=== PATIENT | female | born 1965 | race Caucasian/White ===

== ENCOUNTER 2019-10-10 15:28 | Emergency (ER) | payer OTHER, SELFPAY ==
[2019-10-10 15:30] VITALS: BP 139/81; PULSE 105; RESP 18; TEMP 36.2; O2SAT 99; BMI 30.4
[2019-10-10] MEDS: ONDANSETRON 4 MG/2 ML INJ IV (16:02)
[2019-10-10] MEDS: SODIUM CHLORIDE 0.9% 1,000 ML 1000 ML IV (16:02)
[2019-10-10] MEDS: KETOROLAC 60 MG/2 ML VIAL 30 MG IV (16:13)
[2019-10-10 16:15] LABS: Prothrombin Time 11.4 SECONDS (10.1-12.7)
[2019-10-10 16:18] LABS: PTT Partial Thromboplastin Tim 29 SECONDS (26.4-36.2)
[2019-10-10 16:19] LABS: Alanine Aminotransferase 51 IU/L (<35); Albumin 5.1 g/dL (3.5-5.0); Albumin Globulin Ratio 1.5 (1.0-2.8); Alkaline Phosphatase 109 U/L (38-126); Aspartate Aminotransferase 52 IU/L (14-36); BUN Creatinine Ratio 22.2 (6-22); Bilirubin Total 1.1 mg/dL (0.2-1.3); Blood Urea Nitrogen 20 mg/dL (7-17); Calcium 9.6 mg/dL (8.4-10.2); Carbon Dioxide 27 mmol/L (22-32); Chloride 103 mmol/L (98-107); Estimated Glomerular Filt Rate > 60.0 mL/min (>60); Globulin 3.4 g/dL (1.7-4.1); Glucose 145 mg/dL (70-100); HEMOLYSIS 46 (0-50); Lipase 80 U/L (23-300); Potassium 4.1 mmol/L (3.4-5.1); Sodium 141 mmol/L (137-145); Total Protein 8.5 g/dL (6.3-8.2)
--- NOTE | 2019-10-10 16:23 | ED.NAVMDI ---
HPI - Nausea/Vomiting/Diarrhea General Chief complaint: Nausea/Vomiting/Diarrhea Stated complaint: flu like Sx, N/V/D Time Seen by Provider: 10/10/19 16:10 Source: patient Mode of arrival: Ambulatory History of Present Illness HPI Narrative: Patient is a 54 year old male who presents with vomiting diarrhea ongoing since 4:00 a.m. this morning. No else is sick. He says he is having diarrhea of same time as vomiting. Nonbloody he has had numerous episodes of vomiting. His abdomen feels crampy. He has whole body aches. He denies any throat pain or shortness of breath. MD complaint: nausea, vomiting, diarrhea and abdominal pain Onset (ago): hour(s) Description of Vomiting: watery Description of Diarrhea: none Location of pain: diffuse Severity: moderate Quality: cramping Related Data Previous Rx's Medication Instructions Recorded metoclopramide HCl [Reglan] 10 mg PO Q6H PRN #10 tab 10/10/19 ondansetron 4 mg PO Q8H PRN #10 tab 10/10/19 vancomycin 125 mg PO QID 10 Days #40 cap 10/10/19 Allergies Allergy/AdvReac Type Severity Reaction Status Date / Time sulfamethoxazole Allergy Severe Rash Verified 10/10/19 15:34 [From Bactrim] trimethoprim [From Bactrim] Allergy Severe Rash Verified 10/10/19 15:34 Review of Systems Review of Systems Narrative: GENERAL: Denies chills, fatigue, malaise, fever, sweats, travel HEENT: Denies sinus pain, ear pain, sore throat, difficulty swallowing, neck pain RESPIRATORY: Denies dyspnea, cough, wheezing, hemoptysis, sputum. CARDIOVASCULAR: Denies chest pain, palpitations, orthopnea, edema GASTROINTESTINAL: See HPI : Denies dysuria, frequency, incontinence, hematuria, urinary retention, flank pain. MUSCULOSKELETAL: Denies weakness, joint pain, or bony pain SKIN: No rash, no erythema, no pruritus NEUROLOGIC: Denies weakness, dizziness, headache, numbness, change in speech, confusion PSYCHIATRIC: No concerning psychosocial issues. 12 point review of systems is negative except for those stated above and HPI Patient History Medical History Hyperlipidemia (Acute) Hypertension (Acute) Social History Smoking Status: Never smoker Smoking Status: Never smoker alcohol intake frequency: a few times a month Substance Use Type: does not use Exam Initial Vital Signs Initial Vital Signs: Vital Signs Temperature 97.1 F L 10/10/19 15:30 Pulse Rate 105 H 10/10/19 15:30 Respiratory Rate 18 10/10/19 15:30 Blood Pressure 139/81 10/10/19 15:30 Pulse Oximetry 99 10/10/19 15:30 GENERAL: Well-appearing, well-nourished and in no acute distress. HEENT: Head atraumatic,EOMI, pupils reactive, face symmetric, moist mucous membranes CARDIOVASCULAR: Regular rate and rhythm without murmurs, rubs or gallops. RESPIRATORY: Breath sounds equal bilaterally, no wheezes rales or rhonchi. ABDOMEN: Soft, diffusely tender no guarding no rebound EXTREMITIES: Normal range of motion, no clubbing or edema. Neurovascularly intact NEUROLOGICAL: Alert and oriented x4.Normal gait and speech. Cranial nerves II through XII grossly intact. SKIN: Warm, dry, no laceration, no petechiae, no rashes or lesions. Course Orders Ordered: Discontinued Medications Sodium Chloride (Normal Saline 0.9%) 1,000 mls @ 1,000 mls/hr IV BOLUS ONE Stop: 10/10/19 16:48 Last Infusion: 10/10/19 17:00 Dose: 0 mls/hr Documented by: Admin: 10/10/19 16:02 Dose: 1,000 mls/hr Documented by: BILL Ketorolac Tromethamine (Toradol) 30 mg IV NOW ONE Stop: 10/10/19 16:11 Last Admin: 10/10/19 16:13 Dose: 30 mg Documented by: BILL Metronidazole (Metronidazole) 500 mg PO NOW ONE Stop: 10/10/19 18:23 Last Admin: 10/10/19 18:47 Dose: Not Given Documented by: GRICELDA Ondansetron HCl (Zofran) 4 mg IV NOW ONE Stop: 10/10/19 15:52 Last Admin: 10/10/19 16:02 Dose: 4 mg Documented by: BILL Pantoprazole Sodium (Protonix) 40 mg IV NOW ONE Stop: 10/10/19 16:24 Last Admin: 10/10/19 16:40 Dose: 40 mg Documented by: BILL Vancomycin HCl (Vancomycin) 125 mg PO NOW ONE Stop: 10/10/19 18:50 Last Admin: 10/10/19 19:04 Dose: 125 mg Documented by: BILL Vital Signs Vital signs: Vital Signs - 8 hr 10/10/19 15:30 Temperature 97.1 F L Pulse Rate 105 H Respiratory Rate 18 Blood Pressure 139/81 Pulse Oximetry 99 MDM - Nausea/Vomiting/Diarrhea Lab Data Attestation: I reviewed the patient's lab results. Result diagrams: 10/10/19 15:56 10/10/19 15:56 Labs: Lab Results 10/10/19 10/10/19 10/10/19 Range/Units 15:46 15:56 15:56 WBC 12.5 H (4.5-11.0) X10^3/uL RBC 5.18 (4.0-5.2) X10^6/uL Hgb 16.3 H (12.0-16.0) g/dL Hct 47.7 H (36-46) % MCV 92.2 (80-100) fL MCH 31.4 (26-34) PG MCHC 34.1 (30-36) % RDW 13.2 (11.6-14.8) % Plt Count 224 (150-400) X10^3/uL Neut % (Auto) 94.8 H (50-75) % Lymph % (Auto) 2.1 L (25-40) % Mcintosh % (Auto) 2.7 L (3-14) % Eos % (Auto) 0.1 L (2-4) % Baso % (Auto) 0.3 (0-2) % Neut # (Auto) 81752 H (6287-2390) /uL Lymph # (Auto) 300 L (8465-4301) /uL Mcintosh # (Auto) 300 (0-900) /uL Eos # (Auto) 0 (0-450) /uL Baso # (Auto) 0 (0-100) /uL PT 11.4 (10.1-12.7) SECONDS INR 1.0 (0.9-1.3) APTT 29 (26.4-36.2) SECONDS Sodium (137-145) mmol/L Potassium (3.4-5.1) mmol/L Chloride (98-107) mmol/L Carbon Dioxide (22-32) mmol/L BUN (7-17) mg/dL Creatinine (0.52-1.04) mg/dL Estimated GFR (>60) mL/min BUN/Creatinine Ratio (6-22) Glucose (70-100) mg/dL Calcium (8.4-10.2) mg/dL Total Bilirubin (0.2-1.3) mg/dL AST (14-36) IU/L ALT (<35) IU/L Alkaline Phosphatase (38-126) U/L Total Protein (6.3-8.2) g/dL Albumin (3.5-5.0) g/dL Globulin (1.7-4.1) g/dL Albumin/Globulin Ratio (1.0-2.8) Lipase (23-300) U/L Stl C. cayetanensis PCR (Not Detect) Stool Rotavirus (PCR) (Not Detect) Stool Adenovirus (PCR) (Not Detect) Stool Astrovirus (PCR) (Not Detect) Stool Cryptosporidium PCR (Not Detect) Stl E.coli Shiga Tox PCR (Not Detect) St Sh/Enteroin Ecoli PCR (Not Detect) Stool E coli O157 PCR (Not Detect) Stl Enterotoxigenic E PCR (Not Detect) Stool EPEC (PCR) (Not Detect) Stl E. histolytica PCR (Not Detect) Stool Giardia Lamblia PCR (Not Detect) Stool Sapovirus (PCR) (Not Detect) Stl P. shigelloides PCR (Not Detect) St Y.enterocolitica PCR (Not Detect) Stool Vibrio (PCR) (Not Detect) Stl Vibrio cholerae PCR (Not Detect) Stl Enteroaggr Ecoli PCR (Not Detect) Stl Norovirus GI/GII PCR (Not Detect) Campylobacter (PCR) (Not Detect) C. difficile Tox (PCR) (Not Detect) Influenza A (RT-PCR) Flu a negative (NEGATIVE) Influenza B (RT-PCR) Flu b negative (NEGATIVE) Salmonella (PCR) (Not Detect) 10/10/19 10/10/19 Range/Units 15:56 16:45 WBC (4.5-11.0) X10^3/uL RBC (4.0-5.2) X10^6/uL Hgb (12.0-16.0) g/dL Hct (36-46) % MCV (80-100) fL MCH (26-34) PG MCHC (30-36) % RDW (11.6-14.8) % Plt Count (150-400) X10^3/uL Neut % (Auto) (50-75) % Lymph % (Auto) (25-40) % Mcintosh % (Auto) (3-14) % Eos % (Auto) (2-4) % Baso % (Auto) (0-2) % Neut # (Auto) (8175-2253) /uL Lymph # (Auto) (2167-9083) /uL Mcintosh # (Auto) (0-900) /uL Eos # (Auto) (0-450) /uL Baso # (Auto) (0-100) /uL PT (10.1-12.7) SECONDS INR (0.9-1.3) APTT (26.4-36.2) SECONDS Sodium 141 (137-145) mmol/L Potassium 4.1 (3.4-5.1) mmol/L Chloride 103 (98-107) mmol/L Carbon Dioxide 27 (22-32) mmol/L BUN 20 H (7-17) mg/dL Creatinine 0.90 (0.52-1.04) mg/dL Estimated GFR > 60.0 (>60) mL/min BUN/Creatinine Ratio 22.2 H (6-22) Glucose 145 H (70-100) mg/dL Calcium 9.6 (8.4-10.2) mg/dL Total Bilirubin 1.1 (0.2-1.3) mg/dL AST 52 H (14-36) IU/L ALT 51 H (<35) IU/L Alkaline Phosphatase 109 (38-126) U/L Total Protein 8.5 H (6.3-8.2) g/dL Albumin 5.1 H (3.5-5.0) g/dL Globulin 3.4 (1.7-4.1) g/dL Albumin/Globulin Ratio 1.5 (1.0-2.8) Lipase 80 (23-300) U/L Stl C. cayetanensis PCR Not detected (Not Detect) Stool Rotavirus (PCR) Not detected (Not Detect) Stool Adenovirus (PCR) Not detected (Not Detect) Stool Astrovirus (PCR) Not detected (Not Detect) Stool Cryptosporidium PCR Not detected (Not Detect) Stl E.coli Shiga Tox PCR Not detected (Not Detect) St Sh/Enteroin Ecoli PCR Not detected (Not Detect) Stool E coli O157 PCR Not detected (Not Detect) Stl Enterotoxigenic E PCR Not detected (Not Detect) Stool EPEC (PCR) Not detected (Not Detect) Stl E. histolytica PCR Not detected (Not Detect) Stool Giardia Lamblia PCR Not detected (Not Detect) Stool Sapovirus (PCR) Not detected (Not Detect) Stl P. shigelloides PCR Not detected (Not Detect) St Y.enterocolitica PCR Not detected (Not Detect) Stool Vibrio (PCR) Not detected (Not Detect) Stl Vibrio cholerae PCR Not detected (Not Detect) Stl Enteroaggr Ecoli PCR Not detected (Not Detect) Stl Norovirus GI/GII PCR Detected H (Not Detect) Campylobacter (PCR) Not detected (Not Detect) C. difficile Tox (PCR) Detected H (Not Detect) Influenza A (RT-PCR) (NEGATIVE) Influenza B (RT-PCR) (NEGATIVE) Salmonella (PCR) Not detected (Not Detect) Urine Dip Bedside Urine Glucose Negative Bedside Urine Bilirubin - Negative Bedside Urine Ketone - Negative Urine Specific Broseley 1.025 Bedside Urine Occult Blood - Negative Bedside Urine pH 6.0 Bedside Urine Protein +/- 15 Bedside Urine Urobilinogen - Negative Bedside Urine Nitrite - Negative Bedside Urine Leukocytes - Negative Esterase MDM Narrative Medical decision making narrative: The patient is found to have C diff and norovirus. He is no longer vomiting he is able tolerate oral fluids. He denies any recent antibiotic use. He is started on vancomycin in the emergency department and given oral rehydration technique instructions. Discharge Plan Departure Patient Disposition: Home Clinical Impression: Norovirus, C. difficile diarrhea Discharge Date/Time: 10/10/19 19:21 Instructions: Norovirus Infection, DI for Clostridium difficile Infection Activity Restrictions/Additional Instructions: *You have been diagnosed with norovirus and C diff *What to do: Increase fluid intake recommend something like Gatorade or Gatorade like substance *Continue to take medications as directed Zofran 4 mg every 8 hours if needed for nausea or vomiting Reglan 10 mg Q 8 hours if needed for nausea vomiting Vancomycin 125 mg every 6 hours for 10 days *Follow up with your primary care provider in 2-3 days *Return to ER if you should have persistent vomiting diarrhea inability to tolerate fluids worsening pain dizziness lightheadedness passing or any new, worsening or concerning symptoms Prescriptions: New vancomycin 125 mg capsule 125 mg PO QID 10 Days Qty: 40 RF: 0 metoclopramide HCl [Reglan] 10 mg tablet 10 mg PO Q6H PRN (Reason: nausea and vomiting) Qty: 10 RF: 0 ondansetron 4 mg tablet,disintegrating 4 mg PO Q8H PRN (Reason: nausea and vomiting) Qty: 10 RF: 0 Stand Alone Forms: Work Release Note
[2019-10-10 16:24] LABS: Influenza A - CEPHEID Flu A NEGATIVE (NEGATIVE); Influenza B - CEPHEID Flu B NEGATIVE (NEGATIVE)
[2019-10-10 16:27] LABS: Add Manual Diff / Slide Review NO; Basophils Absolute Auto 0 /uL (0-100); Basophils Percent Auto 0.3 % (0-2); Eosinophils Absolute Auto 0 /uL (0-450); Eosinophils Percent Auto 0.1 % (2-4); Hematocrit 47.7 % (36-46); Hemoglobin 16.3 g/dL (12.0-16.0); Lymphocytes Absolute Auto 300 /uL (1100-4500); Lymphocytes Percent Auto 2.1 % (25-40); Mean Corpuscular HGB Conc 34.1 % (30-36); Mean Corpuscular Hemoglobin 31.4 PG (26-34); Mean Corpuscular Volume 92.2 fL (80-100); Monocytes Absolute Auto 300 /uL (0-900); Monocytes Percent Auto 2.7 % (3-14); Neutrophils Absolute Auto 11900 /uL (1500-7000); Neutrophils Percent Auto 94.8 % (50-75); Platelet Count 224 X10^3/uL (150-400); Red Blood Cell Count 5.18 X10^6/uL (4.0-5.2); Red Cell Distribution Width 13.2 % (11.6-14.8); White Blood Cell Count 12.5 X10^3/uL (4.5-11.0)
[2019-10-10] MEDS: PANTOPRAZOLE 40 MG VIAL IV (16:40)
[2019-10-10 17:30] VITALS: BP 110/73; PULSE 101; RESP 16; O2SAT 97
[2019-10-10 18:13] LABS: Adenovirus F 40/41 Not Detected (Not Detect); Astrovirus Not Detected (Not Detect); Campylobacter Not Detected (Not Detect); Clostridium difficile toxin AB Detected (Not Detect); Cryptosporidium Not Detected (Not Detect); Cyclospora cayetanensis Not Detected (Not Detect); Entamoeba histolytica Not Detected (Not Detect); Enteroaggregative E.coli Not Detected (Not Detect); Enteropathogenic E.coli Not Detected (Not Detect); Enterotoxigenic E.coli It/st Not Detected (Not Detect); Giardia lamblia Not Detected (Not Detect); Norovirus GI/GII Detected (Not Detect); Plesiomonsa shigelloides Not Detected (Not Detect); Rotavirus A Not Detected (Not Detect); Salmonella Not Detected (Not Detect); Sapovirus Not Detected (Not Detect); Shiga-like toxin-prod E.coli Not Detected (Not Detect); Shigella/Enteroinvasive E.coli Not Detected (Not Detect); Vibrio Not Detected (Not Detect); Vibrio cholerae Not Detected (Not Detect); Yersinia enterocolitica Not Detected (Not Detect)
[2019-10-10 19:02] VITALS: BP 117/73; PULSE 93; RESP 16; TEMP 36.6; O2SAT 99
[2019-10-10] MEDS: VANCOMYCIN 125 MG CAPSULE PO (19:04)
== END 2019-10-10 19:21 | disposition home or self-care (01) ==
PROVIDERS: Emergency Provider Emergency Medicine
DX: A08.11 Acute gastroenteropathy due to Norwalk agent (principal); A04.72 Enterocolitis due to Clostridium difficile, not specified as recurrent
CPT/HCPCS: 36415; 80053; 81003; 83690; 85025; 85610; 85730; 87502; 87507; 96361; 96374; 96375; 99284; C9113; J1885; J2405

== ENCOUNTER → 2021-05-11 09:24 | Outpatient (CLI) | payer OTHER, SELFPAY ==
[2021-05-11 10:02] LABS: Erythrocyte Sedimentation Rate 12 MM/HR (0-15)
== END ==
PROVIDERS: PCP Family Medicine; Referring Provider Family Medicine; Visit Provider Family Medicine
DX: R21 Rash and other nonspecific skin eruption (principal)
CPT/HCPCS: 36415; 85651

== ENCOUNTER 2022-03-16 10:48 | Emergency (ER) | payer OTHER, SELFPAY ==
[2022-03-16] VITALS (7 sets, daily range): BP systolic 121–135; BP diastolic 73–80; PULSE 74–110; RESP 18–22; TEMP 36.3; O2SAT 94–99; BMI 30.5
--- NOTE | 2022-03-16 10:55 | DI.RAD.S_ITS ---
PROCEDURE: XR CHEST 2V INDICATIONS: cough, PNA r/o TECHNIQUE: 2 views of the chest were acquired. COMPARISON: None. FINDINGS: Surgical changes and devices: None. Lungs and pleura: Faint appearance bibasilar/retrocardiac opacities. Mediastinum: Mediastinal contours are normal. Heart size is normal. Bones and chest wall: No suspicious bony abnormalities. Soft tissues appear unremarkable. IMPRESSION: Faint appearance of bibasilar/retrocardiac opacities suggestive of pneumonia. Dictated by: Allyssa Mcgarry M.D. on 03/16/2022 at 12:26 Approved by: Allyssa Mcgarry M.D. on 03/16/2022 at 12:26
--- NOTE | 2022-03-16 11:32 | PC.NURSE ---
Pt reports I inhaled something I shouldn't have in 2010. 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 Reports feeling sick for 8 days. Pt is SOB with exertion and talking in long sentences. Reports chest pain with coughing only. Stated pain with inspiration and non-productive cough. He reports taking 800mg of ibuprofen and some mucinex this morning prior to arrival. Lungs are tight throughout bilateral bases. Call light within reach and encouraged to use for needs.
[2022-03-16 11:40] LABS: Alanine Aminotransferase 50 IU/L (<50); Albumin 4.4 g/dL (3.5-5.0); Albumin Globulin Ratio 1.3 (1.0-2.8); Alkaline Phosphatase 140 U/L (38-126); Aspartate Aminotransferase 32 IU/L (17-59); BUN Creatinine Ratio 16.7 (6-22); Bilirubin Total 0.7 mg/dL (0.2-1.3); Blood Urea Nitrogen 13 mg/dL (9-20); Carbon Dioxide 28 mmol/L (22-32); Chloride 105 mmol/L (98-107); Creatine Kinase 88 U/L (55-170); Estimated Glomerular Filt Rate > 60 mL/min (>60); Globulin 3.5 g/dL (1.7-4.1); Glucose 109 mg/dL (70-100); HEMOLYSIS < 15 (0-50); Lipase 101 U/L (23-300); Potassium 3.8 mmol/L (3.4-5.1); Sodium 140 mmol/L (137-145); Total Protein 7.9 g/dL (6.3-8.2)
[2022-03-16 11:52] LABS: Troponin I < 0.012 ng/mL (0.01-0.034)
[2022-03-16 11:53] LABS: Add Manual Diff / Slide Review NO; Basophils Absolute Auto 0 /uL (0-100); Basophils Percent Auto 0.4 % (0-2); Eosinophils Absolute Auto 200 /uL (0-450); Eosinophils Percent Auto 2.2 % (2-4); Hematocrit 41.1 % (41-53); Hemoglobin 14.2 g/dL (13.5-17.5); Lymphocytes Absolute Auto 1500 /uL (1100-4500); Lymphocytes Percent Auto 19.5 % (25-40); Mean Corpuscular HGB Conc 34.6 % (30-36); Mean Corpuscular Hemoglobin 31.1 PG (26-34); Mean Corpuscular Volume 89.9 fL (80-100); Monocytes Absolute Auto 400 /uL (0-900); Monocytes Percent Auto 5.8 % (3-14); Neutrophils Absolute Auto 5500 /uL (1500-7000); Neutrophils Percent Auto 72.1 % (50-75); Platelet Count 262 X10^3/uL (150-400); Red Blood Cell Count 4.57 X10^6/uL (4.5-5.9); Red Cell Distribution Width 12.8 % (11.6-14.8); White Blood Cell Count 7.7 X10^3/uL (4.5-11.0)
[2022-03-16 12:04] LABS: Adenovirus Not Detected (Not Detect); B. parapertussis Not Detected (Not Detecte); Bordetella pertussis Not Detected (Not Detecte); Chlamydophila pneumoniae Not Detected (Not Detect); Coronavirus 229E Not Detected (Not Detect); Coronavirus HKU1 Not Detected (Not Detect); Coronavirus NL 63 Not Detected (Not Detect); Coronavirus OC43 Not Detected (Not Detect); Human Metapneumovirus Not Detected (Not Detect); Human Rhinovirus/Enterovirus Not Detected (Not Detect); Influenza A Detected (Not Detect); Influenza B Not Detected (Not Detect); Mycoplasma pneumoniae Not Detected (Not Detect); Parainfluenza Virus 1 Not Detected (Not Detect); Parainfluenza Virus 2 Not Detected (Not Detect); Parainfluenza Virus 3 Not Detected (Not Detect); Parainfluenza Virus 4 Not Detected (Not Detect); Respiratory Syncytial Virus Not Detected (Not Detect); SARS- CoV-2 Not Detected (Not Detecte)
[2022-03-16 12:13] LABS: COVID19 -Nasal RAPID Negative (Negative)
[2022-03-16] MEDS: ALBUTEROL/IPRATROPIUM 3 ML AMPUL INH (13:26)
[2022-03-16] MEDS: ALBUTEROL HFA PREPACK 1 BOX MISC (14:07)
--- NOTE | 2022-03-16 17:10 | ED_ITS ---
HPI - SOB/Dyspnea <Jeannine Rbo PA-C - Last Filed: 03/16/22 17:21> General Chief Complaint: Shortness of Breath/Dyspnea Stated Complaint: upper resp infection and poss pneumonia Time Seen by Provider: 03/16/22 12:11 Source: patient Mode of arrival: Ambulatory Limitations: no limitations History of Present Illness HPI Narrative: Patient is a 56-year-old man presenting with worsening shortness of breath and cough for the last 8 days. He reports sinus pain, nasal congestion, and nasal drainage that has since subsided but reports new onset shortness of breath, chest congestion, cough. Shortness of breath and cough is worse when laying down or ambulating. He reports occasional lightheadedness during a coughing fit. He denies any fever, chills, nausea, vomiting, or abdominal pain. 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 He denies a history of asthma. Related Data Home Medications Medication Instructions Recorded Confirmed cetirizine 10 mg capsule (Zyrtec) 10 mg PO DAILY 10/04/18 07/01/20 diphenhydramine HCl 25 mg capsule 25 mg PO BEDTIME PRN 10/04/18 07/01/20 (Benadryl) famotidine 20 mg tablet (Pepcid) 20 mg PO DAILY 10/04/18 07/01/20 lisinopril 10 mg tablet 10 mg PO DAILY 10/04/18 07/01/20 Previous Rx's Medication Instructions Recorded benzonatate 100 mg capsule 100 mg PO BEDTIME #20 cap 12/13/18 amoxicillin 875 mg-potassium 1 tab PO BID 10 Days #20 tab 03/16/22 clavulanate 125 mg tablet Allergies Allergy/AdvReac Type Severity Reaction Status Date / Time sulfamethoxazole Allergy Severe Facial Verified 07/01/20 16:54 [From Bactrim] swelling trimethoprim [From Bactrim] Allergy Severe Facial Verified 07/01/20 16:54 swelling Review of Systems <Jeannine Rob PA-C - Last Filed: 03/16/22 17:21> Review of Systems Narrative: GENERAL: Denies fatigue, fever, or chills HEENT: Denies ear pain, vision changes, sore throat, or difficulty swallowing RESPIRATORY: See HPI. CARDIOVASCULAR: Denies chest pain, pressure, palpitations, or edema GASTROINTESTINAL: Denies, nausea, vomiting, changes in bowel movements, or abd ominal pain : Denies dysuria, frequency, hematuria, or flank pain MUSCULOSKELETAL: Denies weakness, arthralgias, or myalgias SKIN: No rash, pruritis, or erythema NEUROLOGIC: Denies weakness, dizziness, headache, numbness, tingling or confusion PSYCHIATRIC: No concerning psychosocial issues. Patient History <Jeannine Rob PA-C - Last Filed: 03/16/22 17:21> Medical History No significant medical problems Social History Smoking Status: Never smoker Smoking Status: Never smoker Substance Use Type: does not use Exam <Jeannine Rob PA-C - Last Filed: 03/16/22 17:21> Narrative Exam Narrative: GENERAL: 56 year old patient appears stated age. Well-developed patient, in mild distress. HEAD: Atraumatic. Normocephalic. EYES: Pupils equal round and reactive. Extraocular motions intact. No scleral icterus. No injection or drainage. ENT: Nose without bleeding, purulent drainage. Throat without erythema, tonsillar hypertrophy or exudate. Airway patent. NECK: Trachea midline. Non tender CARDIOVASCULAR: Regular rate and rhythm without murmurs, gallops, or rubs. RESPIRATORY: Tight coarse breath sounds, slight expiratory wheeze bilaterally GASTROINTESTINAL: Abdomen soft, non-tender, nondistended. EXTREMITIES: No edema or joint tenderness. BACK: Nontender without deformity or crepitance. No flank tenderness. NEURO: AOx3. SKIN: No rash or erythema of visible areas Initial Vital Signs Initial Vital Signs: Vital Signs Temperature 97.3 F L 03/16/22 10:49 Pulse Rate 110 H 03/16/22 10:49 Respiratory Rate 22 03/16/22 10:49 Blood Pressure 135/80 03/16/22 10:49 Pulse Oximetry 98 03/16/22 10:49 <Kellie Ratliff DO - Last Filed: 03/20/22 07:32> Initial Vital Signs Initial Vital Signs: Vital Signs Temperature 97.3 F L 03/16/22 10:49 Pulse Rate 110 H 03/16/22 10:49 Respiratory Rate 22 03/16/22 10:49 Blood Pressure 135/80 03/16/22 10:49 Pulse Oximetry 98 03/16/22 10:49 Course <Jeannine Rob PA-C - Last Filed: 03/16/22 17:21> Orders Ordered: Discontinued Medications Albuterol (Albuterol Hfa Prepack) [address] [facility] SEEINSTR ONE Stop: 03/16/22 14:03 Last Admin: 03/16/22 14:07 Dose: 1 box Documented by: CSIEDLE Albuterol/Ipratropium (Albuterol/Ipratropium 3 Ml Ampul) 3 ml INH NOW ONE Stop: 03/16/22 13:04 Last Admin: 03/16/22 13:26 Dose: 3 ml Documented by: MIKE Vital Signs Vital signs: Vital Signs - 8 hr 03/16/22 10:49 03/16/22 10:57 03/16/22 11:00 Temperature 97.3 F L Pulse Rate 110 H 104 H 96 H Respiratory Rate 22 Blood Pressure 135/80 135/80 Pulse Oximetry 98 95 96 03/16/22 11:08 03/16/22 11:30 03/16/22 12:00 Temperature Pulse Rate 95 H 106 H 82 Respiratory Rate 18 Blood Pressure 129/78 121/73 134/80 Pulse Oximetry 94 94 94 03/16/22 13:27 Temperature Pulse Rate 74 Respiratory Rate 22 Blood Pressure Pulse Oximetry 99 <Kellie Ratliff DO - Last Filed: 03/20/22 07:32> Orders Ordered: Discontinued Medications Albuterol (Albuterol Hfa Prepack) [address] [facility] SEE[facility] ONE Stop: 03/16/22 14:03 Last Admin: 03/16/22 14:07 Dose: 1 box Documented by: CSIEDLE Albuterol/Ipratropium (Albuterol/Ipratropium 3 Ml Ampul) 3 ml INH NOW ONE Stop: 03/16/22 13:04 Last Admin: 03/16/22 13:26 Dose: 3 ml Documented by: MIKE Vital Signs Vital signs: Vital Signs - 8 hr 03/16/22 10:49 03/16/22 10:57 03/16/22 11:00 Temperature 97.3 F L Pulse Rate 110 H 104 H 96 H Respiratory Rate 22 Blood Pressure 135/80 135/80 Pulse Oximetry 98 95 96 03/16/22 11:08 03/16/22 11:30 03/16/22 12:00 Temperature Pulse Rate 95 H 106 H 82 Respiratory Rate 18 Blood Pressure 129/78 121/73 134/80 Pulse Oximetry 94 94 94 03/16/22 13:27 Temperature Pulse Rate 74 Respiratory Rate 22 Blood Pressure Pulse Oximetry 99 MDM - SOB/Dyspnea <Jeannine Rob PA-C - Last Filed: 03/16/22 17:21> Lab Data Result diagrams: 03/16/22 11:30 03/16/22 11:30 Labs: Lab Results 03/16/22 03/16/22 03/16/22 Range/Units 11:07 11:07 11:30 WBC 7.7 (4.5-11.0) X10^3/uL RBC 4.57 (4.5-5.9) X10^6/uL Hgb 14.2 (13.5-17.5) g/dL Hct 41.1 (41-53) % MCV 89.9 (80-100) fL MCH 31.1 (26-34) PG MCHC 34.6 (30-36) % RDW 12.8 (11.6-14.8) % Plt Count 262 (150-400) X10^3/uL Neut % (Auto) 72.1 (50-75) % Lymph % (Auto) 19.5 L (25-40) % Lassen % (Auto) 5.8 (3-14) % Eos % (Auto) 2.2 (2-4) % Baso % (Auto) 0.4 (0-2) % Neut # (Auto) 5500 (5801-4340) /uL Lymph # (Auto) 1500 (3089-5721) /uL Lassen # (Auto) 400 (0-900) /uL Eos # (Auto) 200 (0-450) /uL Baso # (Auto) 0 (0-100) /uL Sodium (137-145) mmol/L Potassium (3.4-5.1) mmol/L Chloride (98-107) mmol/L Carbon Dioxide (22-32) mmol/L BUN (9-20) mg/dL Creatinine (0.66-1.25) mg/dL Estimated GFR (>60) mL/min BUN/Creatinine Ratio (6-22) Glucose (70-100) mg/dL Calcium (8.4-10.2) mg/dL Total Bilirubin (0.2-1.3) mg/dL AST (17-59) IU/L ALT (<50) IU/L Alkaline Phosphatase (38-126) U/L Total Creatine Kinase (55-170) U/L CK-MB (CK-2) CK-MB (CK-2) Rel Index Troponin I (0.01-0.034) ng/mL Total Protein (6.3-8.2) g/dL Albumin (3.5-5.0) g/dL Globulin (1.7-4.1) g/dL Albumin/Globulin Ratio (1.0-2.8) Lipase (23-300) U/L Chlamy pneumoniae PCR Not detected (Not Detect) Adenovirus (PCR) Not detected (Not Detect) B. pertussis DNA (PCR) Not detected (Not Detecte) B.parapertussis DNA PCR Not detected (Not Detecte) Coronavirus OC43 (PCR) Not detected (Not Detect) Coronavirus HKU1 (PCR) Not detected (Not Detect) Coronavirus 229E (PCR) Not detected (Not Detect) SARS-CoV-2 (PCR) Not detected Negative (Not Detecte) Coronavirus NL63 (PCR) Not detected (Not Detect) Human Metapneumovir PCR Not detected (Not Detect) Influenza Type A (PCR) Detected H (Not Detect) Influenza Type B (PCR) Not detected (Not Detect) M. pneumoniae (PCR) Not detected (Not Detect) Parainfluenza 1 (PCR) Not detected (Not Detect) Parainfluenza 2 (PCR) Not detected (Not Detect) Parainfluenza 3 (PCR) Not detected (Not Detect) Parainfluenza 4 (PCR) Not detected (Not Detect) RSV (PCR) Not detected (Not Detect) Entero/Rhino (PCR) Not detected (Not Detect) 03/16/22 Range/Units 11:30 WBC (4.5-11.0) X10^3/uL RBC (4.5-5.9) X10^6/uL Hgb (13.5-17.5) g/dL Hct (41-53) % MCV (80-100) fL MCH (26-34) PG MCHC (30-36) % RDW (11.6-14.8) % Plt Count (150-400) X10^3/uL Neut % (Auto) (50-75) % Lymph % (Auto) (25-40) % Lassen % (Auto) (3-14) % Eos % (Auto) (2-4) % Baso % (Auto) (0-2) % Neut # (Auto) (1622-6470) /uL Lymph # (Auto) (1587-6603) /uL Lassen # (Auto) (0-900) /uL Eos # (Auto) (0-450) /uL Baso # (Auto) (0-100) /uL Sodium 140 (137-145) mmol/L Potassium 3.8 (3.4-5.1) mmol/L Chloride 105 (98-107) mmol/L Carbon Dioxide 28 (22-32) mmol/L BUN 13 (9-20) mg/dL Creatinine 0.78 (0.66-1.25) mg/dL Estimated GFR > 60 (>60) mL/min BUN/Creatinine Ratio 16.7 (6-22) Glucose 109 H (70-100) mg/dL Calcium 9.0 (8.4-10.2) mg/dL Total Bilirubin 0.7 (0.2-1.3) mg/dL AST 32 (17-59) IU/L ALT 50 H (<50) IU/L Alkaline Phosphatase 140 H (38-126) U/L Total Creatine Kinase 88 (55-170) U/L CK-MB (CK-2) TNP CK-MB (CK-2) Rel Index TNP Troponin I < 0.012 (0.01-0.034) ng/mL Total Protein 7.9 (6.3-8.2) g/dL Albumin 4.4 (3.5-5.0) g/dL Globulin 3.5 (1.7-4.1) g/dL Albumin/Globulin Ratio 1.3 (1.0-2.8) Lipase 101 (23-300) U/L Chlamy pneumoniae PCR (Not Detect) Adenovirus (PCR) (Not Detect) B. pertussis DNA (PCR) (Not Detecte) B.parapertussis DNA PCR (Not Detecte) Coronavirus OC43 (PCR) (Not Detect) Coronavirus HKU1 (PCR) (Not Detect) Coronavirus 229E (PCR) (Not Detect) SARS-CoV-2 (PCR) (Not Detecte) Coronavirus NL63 (PCR) (Not Detect) Human Metapneumovir PCR (Not Detect) Influenza Type A (PCR) (Not Detect) Influenza Type B (PCR) (Not Detect) M. pneumoniae (PCR) (Not Detect) Parainfluenza 1 (PCR) (Not Detect) Parainfluenza 2 (PCR) (Not Detect) Parainfluenza 3 (PCR) (Not Detect) Parainfluenza 4 (PCR) (Not Detect) RSV (PCR) (Not Detect) Entero/Rhino (PCR) (Not Detect) Imaging Data Chest x-ray: Radiologist's Impression: [address] [address] XRay Report Signed Patient: Hieu Garner MR#: [id number] : 1965 Acct:[id number] Age/Sex: 56 / M Date of Service: 03/16/22 Loc: ED Accession Number: [id number] ?? Procedure: XR chest 2V Ordering Provider: Kellie Ratliff D.O. PROCEDURE:? XR CHEST 2V ? INDICATIONS:? cough, PNA r/o ? TECHNIQUE:? 2 views of the chest were acquired.? ? COMPARISON:? None. ? FINDINGS:? ? Surgical changes and devices:? None.? ? Lungs and pleura:? Faint appearance bibasilar/retrocardiac opacities. ? Mediastinum:? Mediastinal contours are normal.? Heart size is normal.? ? Bones and chest wall:? No suspicious bony abnormalities.? Soft tissues appear unremarkable.? ? IMPRESSION:? Faint appearance of bibasilar/retrocardiac opacities suggestive of pneumonia. ? ? Dictated by: Allyssa Mcgarry M.D. on 03/16/2022 at 12:26 ? ? Approved by: Allyssa Mcgarry M.D. on 03/16/2022 at 12:26 ? MDM Narrative Medical decision making narrative: Patient is a 56-year-old man presenting with worsening shortness of breath and cough for 8 days. COVID-19 test was negative. Respiratory panel came back positive for influenza A. Chest x-ray came back suggestive of pneumonia. Upon auscultation, the patient had tight coarse breath sounds with a slight expiratory wheeze. RT was consulted and patient was given a DuoNeb. Patient reported an improvement in his symptoms after the DuoNeb, and breath sounds improved on auscultation. Due to the nature and duration of his symptoms, as well as his respiratory history, I prescribed him Augmentin to treat pneumonia and he was also given an albuterol HFA and spacer. Was also instructed to initiate supportive measures such as good fluid intake, rest, and ibuprofen as needed. Findings and discharge diagnosis discussed with patient/family followed by verbalization of understanding Return precautions discussed with patient/family whom verbalize understanding. <Kellie Ratliff, DO - Last Filed: 03/20/22 07:32> Lab Data Labs: Lab Results 03/16/22 03/16/22 03/16/22 Range/Units 11:07 11:07 11:30 WBC 7.7 (4.5-11.0) X10^3/uL RBC 4.57 (4.5-5.9) X10^6/uL Hgb 14.2 (13.5-17.5) g/dL Hct 41.1 (41-53) % MCV 89.9 (80-100) fL MCH 31.1 (26-34) PG MCHC 34.6 (30-36) % RDW 12.8 (11.6-14.8) % Plt Count 262 (150-400) X10^3/uL Neut % (Auto) 72.1 (50-75) % Lymph % (Auto) 19.5 L (25-40) % Lassen % (Auto) 5.8 (3-14) % Eos % (Auto) 2.2 (2-4) % Baso % (Auto) 0.4 (0-2) % Neut # (Auto) 5500 (9789-0770) /uL Lymph # (Auto) 1500 (7303-0537) /uL Lassen # (Auto) 400 (0-900) /uL Eos # (Auto) 200 (0-450) /uL Baso # (Auto) 0 (0-100) /uL Sodium (137-145) mmol/L Potassium (3.4-5.1) mmol/L Chloride (98-107) mmol/L Carbon Dioxide (22-32) mmol/L BUN (9-20) mg/dL Creatinine (0.66-1.25) mg/dL Estimated GFR (>60) mL/min BUN/Creatinine Ratio (6-22) Glucose (70-100) mg/dL Calcium (8.4-10.2) mg/dL Total Bilirubin (0.2-1.3) mg/dL AST (17-59) IU/L ALT (<50) IU/L Alkaline Phosphatase (38-126) U/L Total Creatine Kinase (55-170) U/L CK-MB (CK-2) CK-MB (CK-2) Rel Index Troponin I (0.01-0.034) ng/mL Total Protein (6.3-8.2) g/dL Albumin (3.5-5.0) g/dL Globulin (1.7-4.1) g/dL Albumin/Globulin Ratio (1.0-2.8) Lipase (23-300) U/L Chlamy pneumoniae PCR Not detected (Not Detect) Adenovirus (PCR) Not detected (Not Detect) B. pertussis DNA (PCR) Not detected (Not Detecte) B.parapertussis DNA PCR Not detected (Not Detecte) Coronavirus OC43 (PCR) Not detected (Not Detect) Coronavirus HKU1 (PCR) Not detected (Not Detect) Coronavirus 229E (PCR) Not detected (Not Detect) SARS-CoV-2 (PCR) Not detected Negative (Not Detecte) Coronavirus NL63 (PCR) Not detected (Not Detect) Human Metapneumovir PCR Not detected (Not Detect) Influenza Type A (PCR) Detected H (Not Detect) Influenza Type B (PCR) Not detected (Not Detect) M. pneumoniae (PCR) Not detected (Not Detect) Parainfluenza 1 (PCR) Not detected (Not Detect) Parainfluenza 2 (PCR) Not detected (Not Detect) Parainfluenza 3 (PCR) Not detected (Not Detect) Parainfluenza 4 (PCR) Not detected (Not Detect) RSV (PCR) Not detected (Not Detect) Entero/Rhino (PCR) Not detected (Not Detect) 03/16/22 Range/Units 11:30 WBC (4.5-11.0) X10^3/uL RBC (4.5-5.9) X10^6/uL Hgb (13.5-17.5) g/dL Hct (41-53) % MCV (80-100) fL MCH (26-34) PG MCHC (30-36) % RDW (11.6-14.8) % Plt Count (150-400) X10^3/uL Neut % (Auto) (50-75) % Lymph % (Auto) (25-40) % Lassen % (Auto) (3-14) % Eos % (Auto) (2-4) % Baso % (Auto) (0-2) % Neut # (Auto) (4389-6647) /uL Lymph # (Auto) (3988-4821) /uL Lassen # (Auto) (0-900) /uL Eos # (Auto) (0-450) /uL Baso # (Auto) (0-100) /uL Sodium 140 (137-145) mmol/L Potassium 3.8 (3.4-5.1) mmol/L Chloride 105 (98-107) mmol/L Carbon Dioxide 28 (22-32) mmol/L BUN 13 (9-20) mg/dL Creatinine 0.78 (0.66-1.25) mg/dL Estimated GFR > 60 (>60) mL/min BUN/Creatinine Ratio 16.7 (6-22) Glucose 109 H (70-100) mg/dL Calcium 9.0 (8.4-10.2) mg/dL Total Bilirubin 0.7 (0.2-1.3) mg/dL AST 32 (17-59) IU/L ALT 50 H (<50) IU/L Alkaline Phosphatase 140 H (38-126) U/L Total Creatine Kinase 88 (55-170) U/L CK-MB (CK-2) TNP CK-MB (CK-2) Rel Index TNP Troponin I < 0.012 (0.01-0.034) ng/mL Total Protein 7.9 (6.3-8.2) g/dL Albumin 4.4 (3.5-5.0) g/dL Globulin 3.5 (1.7-4.1) g/dL Albumin/Globulin Ratio 1.3 (1.0-2.8) Lipase 101 (23-300) U/L Chlamy pneumoniae PCR (Not Detect) Adenovirus (PCR) (Not Detect) B. pertussis DNA (PCR) (Not Detecte) B.parapertussis DNA PCR (Not Detecte) Coronavirus OC43 (PCR) (Not Detect) Coronavirus HKU1 (PCR) (Not Detect) Coronavirus 229E (PCR) (Not Detect) SARS-CoV-2 (PCR) (Not Detecte) Coronavirus NL63 (PCR) (Not Detect) Human Metapneumovir PCR (Not Detect) Influenza Type A (PCR) (Not Detect) Influenza Type B (PCR) (Not Detect) M. pneumoniae (PCR) (Not Detect) Parainfluenza 1 (PCR) (Not Detect) Parainfluenza 2 (PCR) (Not Detect) Parainfluenza 3 (PCR) (Not Detect) Parainfluenza 4 (PCR) (Not Detect) RSV (PCR) (Not Detect) Entero/Rhino (PCR) (Not Detect) ECG Data Attestation: I personally reviewed and interpreted this ECG as follows: Interpretation: Sinus rhythm with PVCs, rate 86 OR 128 QRS of 92 QTC 457[address] No acute ST changes appreciated. Discharge Plan Departure Patient Disposition: Home Clinical Impression: Influenza A Pneumonia Qualifiers: Pneumonia type: due to unspecified organism Laterality: unspecified laterality Lung location: unspecified part of lung Qualified Code(s): J18.9 - Pneumonia, unspecified organism Instructions: DI for Pneumonia -- Adult, DI for Influenza -- Adult Activity Restrictions/Additional Instructions: *You have been diagnosed with influenza A and pneumonia. You were prescribed an antibiotic today, please take this as directed. You can also take your albuterol inhaler as needed. You should also rest, drink plenty of fluids, and other supportive measures. If your shortness of breath worsens, you develop chest pain, fever, or any other concerning symptoms please return back to the ER. *What to do: *Please continue to take your regular medications as directed. [X] New medication prescriptions sent to your pharmacy: [[facility]] [ ] New medication written as a paper prescription [ ] No new medications given *Please follow up with your primary care provider in 2-3 days, call for an appointment. Let them know you were seen in the Emergency Department and that we ask that you be seen in follow up. We will electronically transmit a record of today's note if your PCP is in our system *If you do not have a primary care provider please contact the [facility] Call Center at [phone] and they can help get you set up with a doctor in the community. *Return to Emergency Department if you should have any new, worsening or concerning symptoms, such as [fever greater than 101 F, shaking chills, worsening pain, persistent vomiting or other bothersome symptoms] Prescriptions: New amoxicillin-pot clavulanate 875-125 mg tablet 1 tab PO BID 10 Days Qty: 20 0RF No Action famotidine [Pepcid] 20 mg tablet 20 mg PO DAILY 0RF diphenhydramine HCl [Benadryl] 25 mg capsule 25 mg PO BEDTIME PRN0RF lisinopril 10 mg tablet 10 mg PO DAILY 0RF cetirizine [Zyrtec] 10 mg capsule 10 mg PO DAILY 0RF benzonatate 100 mg capsule 100 mg PO BEDTIME Qty: 20 0RF <Kellie Ratliff, DO - Last Filed: 03/20/22 07:32> Cosign ED Attending Cosignature Attestation: This is a 56-year-old male with symptoms for the past 8 days who test in positive for influenza with some opacities suggestive of pneumonia on exam who had some tightness and responded to DuoNeb. Patient does not appear to be septi c, COVID swab is negative, EKG, troponin not show any cardiac origin no other major abnormalities. Patient improved with treatment here in the department. Decision was made to initiate antibiotics for possible post influenza pneumonia although early in course patient continues to worsen with symptoms rather than improve in 8 days. Patient did have her influenza shot. They were seen independently evaluated by myself as well agree with current plan of care.
== END 2022-03-16 14:18 | disposition home or self-care (01) ==
PROVIDERS: Emergency Medicine; Emergency Provider Physician Assistant
DX: J18.9 Pneumonia, unspecified organism (principal); J10.1 Influenza due to other identified influenza virus with other respiratory manifestations; R07.9 Chest pain, unspecified; Z20.822 Contact with and (suspected) exposure to COVID-19
CPT/HCPCS: 36415; 71046; 80053; 82550; 83690; 84484; 85025; 87633; 87635; 93005; 94640; 99284; C9803